=== PATIENT | male | born 1990 | race Hispanic/Latino ===

== ENCOUNTER → 2020-07-29 | Outpatient (CLI) | payer OTHER | LOC: SLEEP 18:51 | PROVIDERS: ATTEND Internal Medicine | DX: Z01.812 Encounter for preprocedural laboratory examination (principal); Z20.822 Contact with and (suspected) exposure to COVID-19; G47.33 Obstructive sleep apnea (adult) (pediatric); I10 Essential (primary) hypertension | CPT/HCPCS: 95806; U0002 ==